=== PATIENT | female | born 1975 | race Caucasian/White ===

== ENCOUNTER 2016-11-24 00:25 | Emergency (ER) | payer OTHER ==
[2016-11-24 00:44] VITALS: BP 106/66; PULSE 63; TEMP 97.7; BMI 34.9
--- NOTE | 2016-11-24 00:46 | PDOC ---
History of Present Illness - General Chief Complaint: Pain Stated Complaint: STOMACH PAIN/VOMITING Time Seen by Provider: 11/24/16 00:45 Past History - Past Medical History Allergies/Adverse Reactions: Allergies Allergy/AdvReac Type Severity Reaction Status Date / Time No Known Allergies Allergy Verified 11/24/16 00:38 Home Medications: Ambulatory Orders Albuterol Sulfate Inhaler - [Ventolin HFA Inhaler -] 2 inh IH Q6H #1 inh Azithromycin [Zithromax -] 250 mg PO UTDICT #6 tab 09/06/16 Prednisone [Deltasone -] 40 mg PO DAILY #14 tablet 09/06/16 Asthma: Yes Suicide Attempt (Hx): No Other medical history: sleep apnea and vericos veins - Immunization History Td Vaccination: No TDAP Vaccination: No Immunization Up to Date: Yes - Psycho/Social/Smoking Cessation Hx Anxiety: No Suicidal Ideation: No Smoking Status: No Smoking History: Never smoked Years of Tobacco Use: 0 Have you smoked in the past 12 months: No Number of Cigarettes Smoked Daily: 0 Hx Alcohol Use: No Drug/Substance Use Hx: No Substance Use Type: None *Physical Exam - Vital Signs Last Vital Signs Temp Pulse Resp BP Pulse Ox 97.7 F 63 20 106/66 100 11/24/16 00:34 11/24/16 00:34 11/24/16 00:34 11/24/16 00:34 11/24/16 00:34
== END 2016-11-24 01:40 | disposition left against medical advice (07) ==
LOC: JER 00:25
DX: Z53.21 Procedure and treatment not carried out due to patient leaving prior to being seen by health care provider (principal)
CPT/HCPCS: 99281-25

== ENCOUNTER 2017-02-10 16:17 | Emergency (ER) | payer OTHER ==
[2017-02-10 16:33] VITALS: TEMP 98.1; BMI 33.8
--- NOTE | 2017-02-10 16:44 | PDOC ---
History of Present Illness - General Chief Complaint: Pain Stated Complaint: ABD PAIN/NAUSEA Time Seen by Provider: 02/10/17 16:44 Exam Limitations: No Limitations - History of Present Illness Initial Comments: 02/10/17 16:44 CHIEF COMPLAINT: Abdominal pain HISTORY OF PRESENT ILLNESS: This is an otherwise healthy 41 year old female who presents with right upper abdominal pain and vomiting since Friday. She reports that the pain is worse with eating. She has had several episodes of diarrhea daily since the onset of symptoms. She denies fevers/chills, constipation, dysuria, hematemesis, or any other symptoms. Patient does not have a PCP. REVIEW OF SYSTEMS: GENERAL/CONSTITUTIONAL: No fever or chills. No weakness. No weight change. HEAD, EYES, EARS, NOSE AND THROAT: No change in vision. No ear pain or discharge. No sore throat. CARDIOVASCULAR: No chest pain or palpitations. RESPIRATORY: No cough, wheezing, or shortness of breath. GASTROINTESTINAL: See HPI. GENITOURINARY: No dysuria, frequency, or change in urination. MUSCULOSKELETAL: No joint or muscle swelling or pain. No neck or back pain. SKIN: No rash or easy bruising. NEUROLOGIC: No headache, vertigo, loss of consciousness, or loss of sensation. PSYCHIATRIC: No depression or anxiety. ENDOCRINE: No increased thirst. No abnormal weight change. HEMATOLOGIC/LYMPHATIC: No anemia, easy bleeding, or history of blood clots. ALLERGIC/IMMUNOLOGIC: No hives or skin allergy. No latex allergy. PHYSICAL EXAM: GENERAL: The patient is awake, alert, and fully oriented, in no acute distress. HEAD: Normal with no signs of trauma. ENT: Pupils equal, round and reactive to light, extraocular movements intact, sclera anicteric, conjunctiva clear. Neck supple. LUNGS: Clear to auscultation bilaterally. Normal excursion. No respiratory distress or use of accessory muscles. CV: RRR, S1/S2, no MRG. Cap refill < 2 sec. ABDOMEN: Soft, non-distended, tender to palpation in RUQ. EXTREMITIES: Normal range of motion, no edema. NEUROLOGICAL: Normal speech, normal gait. CN II-XII grossly intact. PSYCH: Normal mood, normal affect. SKIN: Warm, dry, normal turgor, no rashes or lesions noted. Past History - Past Medical History Allergies/Adverse Reactions: Allergies Allergy/AdvReac Type Severity Reaction Status Date / Time No Known Allergies Allergy Verified 02/10/17 16:33 Home Medications: Ambulatory Orders NK [No Known Home Medication] 02/10/17 Asthma: Yes Suicide Attempt (Hx): No - Immunization History Td Vaccination: No TDAP Vaccination: No Immunization Up to Date: Yes - Psycho/Social/Smoking Cessation Hx Anxiety: No Suicidal Ideation: No Smoking Status: No Smoking History: Never smoked Years of Tobacco Use: 0 Have you smoked in the past 12 months: No Number of Cigarettes Smoked Daily: 0 Hx Alcohol Use: No Drug/Substance Use Hx: No Substance Use Type: None *Physical Exam - Vital Signs Last Vital Signs Temp Pulse Resp BP Pulse Ox 98.1 F 68 18 109/65 97 02/10/17 16:30 02/10/17 16:30 02/10/17 16:30 02/10/17 16:30 02/10/17 16:30 ED Treatment Course - LABORATORY CBC & Chemistry Diagram: 02/10/17 17:26 02/10/17 17:26 Medical Decision Making - Medical Decision Making 02/10/17 17:38 A/P: 41 year old female with RUQ pain and vomiting. 1. UA/ 2. Abdominal labs 3. Gallbladder u/s to r/o cheolecystitis 4. Hydromorphone 0.5 mg IVP for pain 5. Zofran 4mg IVP for nausea 6. IVF 7. Re-assess 02/10/17 18:26 U/s negative for gallstones. 02/10/17 18:41 Microscopic hematuria noted- patient is currently menstruating. 02/10/17 18:44 Patient re-evaluating and is feeling better. Tolerating PO. Will dc with Pepcid , Zofran, and bland diet instructions. *DC/Admit/Observation/Transfer Diagnosis at time of Disposition: RUQ abdominal pain - Discharge Dispostion Disposition: HOME Condition at time of disposition: Improved Admit: No - Referrals Referrals: Jenn Siddiqi MD [Primary Care Provider] - Call tomorrow - Patient Instructions Printed Discharge Instructions: DI for Viral Gastroenteritis -- Adult, Gastroenteritis Diet Additional Instructions: -You were seen today for upper abdominal pain and vomiting. -Your blood work and ultrasound were normal. -Take Pepcid and Zofran as prescribed. -Eat a bland diet (instructions enclosed). -Follow up with Dr. Anguiano. -Return here for worsening pain, inability to keep down fluids, or any other concerning symptoms. Print Language: THAI
[2017-02-10] MEDS ORDERED: ONDANSETRON 4 MG/2 ML VIAL IVPUSH ONE (16:55)
[2017-02-10] MEDS ORDERED: HYDROmorphone HCL CARPU-JECT 1 MG/1 ML DISP.SYRIN IVPUSH ONE (16:55)
[2017-02-10] MEDS ORDERED: SODIUM CHLORIDE 1,000 ML IV STA (16:55)
[2017-02-10] MEDS ORDERED: ONDANSETRON 4 MG/2 ML VIAL ONE (17:24)
[2017-02-10] MEDS ORDERED: HYDROmorphone HCL CARPU-JECT 1 MG/1 ML DISP.SYRIN ONE (17:24)
[2017-02-10 17:46] LABS: BASOPHIL 0.4 % (0-2.0); MCH 30.2 pg (25.7-33.7); MCHC 33.3 g/dl (32.0-36.0); MEAN CELL VOLUME 90.7 fl (80-96); MEAN PLT VOLUME 8.2 fl (7.5-11.1); NEUTROPHILS 46.4 % (42.8-82.8); PLATELET COUNT 297 K/MM3 (134-434); RDW 13.6 % (11.6-15.6); WHITE BLOOD COUNT 5.6 K/mm3 (4.0-10.0)
[2017-02-10 17:48] LABS: URINE APPEARANCE CLEAR; URINE BILIRUBIN NEGATIVE (NEGATIVE); URINE COLOR YELLOW; URINE GLUCOSE (UA) NEGATIVE (NEGATIVE); URINE KETONE NEGATIVE (NEGATIVE); URINE NITRITE NEGATIVE (NEGATIVE); URINE PROTEIN NEGATIVE (NEGATIVE); URINE UROBILINOGEN NEGATIVE E.U./dl (0.2-1.0)
[2017-02-10 18:01] LABS: URINE BLOOD 3+ (NEGATIVE); URINE LEUK ESTERASE 1+ (NEGATIVE)
[2017-02-10 18:12] LABS: URINE BACTERIA RARE /hpf (NONE SEEN); URINE HYALINE CAST 2 /lpf; URINE MUCUS RARE; URINE RBC 180 /hpf (0-3); URINE WBC 117 /hpf (3-5)
[2017-02-10 18:22] LABS: ALBUMIN 3.3 g/dl (3.4-5.0); ALK PHOS 107 U/L (45-117); ANION GAP 11 (8-16); BILIRUBIN,TOTAL 0.2 mg/dL (0.2-1.0); CALCIUM 8.6 mg/dL (8.5-10.1); CO2 26 mmol/L (21-32); CREATININE 0.6 mg/dL (0.55-1.02); GLUCOSE,RANDOM 93 mg/dL (74-106); SGPT/ALT 24 U/L (12-78); TOT PROT 6.8 g/dl (6.4-8.2)
[2017-02-10 18:26] LABS: SGOT/AST 18 U/L (15-37)
[2017-02-10] MEDS ORDERED: FAMOTIDINE 20 MG/50 ML IVPB 20 MG in PREMIX 50 IVPB ONE (18:26)
[2017-02-10] MEDS ORDERED: FAMOTIDINE 20 MG/50 ML IVPB 50 ML IVPB ONE (18:29)
[2017-02-10 19:00] VITALS: BP 112/64; PULSE 70
== END 2017-02-10 18:59 | disposition home or self-care (01) ==
LOC: JER 16:17
PROC: 3E0337Z Introduction of Electrolytic and Water Balance Substance into Peripheral Vein, Percutaneous Approach (ICD-10-PCS; principal; 2017-02-10)
PROC: 3E033GC Introduction of Other Therapeutic Substance into Peripheral Vein, Percutaneous Approach (ICD-10-PCS; 2017-02-10)
PROC: 3E033GC Introduction of Other Therapeutic Substance into Peripheral Vein, Percutaneous Approach (ICD-10-PCS; 2017-02-10)
PROC: 3E033NZ Introduction of Analgesics, Hypnotics, Sedatives into Peripheral Vein, Percutaneous Approach (ICD-10-PCS; 2017-02-10)
DX: K52.9 Noninfective gastroenteritis and colitis, unspecified (principal)
CPT/HCPCS: 36415; 76705-TC; 80053; 81003; 81015; 83690; 84703; 85025; 96361; 96365; 96375; 99283-25

== ENCOUNTER 2017-06-03 18:50 | Emergency (ER) | payer OTHER ==
[2017-06-03 18:58] VITALS: BP 147/73; PULSE 87; TEMP 98.3; BMI 33.8
[2017-06-03] MEDS ORDERED: ALBUTEROL SO4 2.5/IPRATROPIUM 0.5 INH SOL 3 ML VIAL.NEB. NEB ONE (19:43)
[2017-06-03] MEDS ORDERED: DEXAMETHASONE 4 MG TABLET (FP) PO ONE (19:43)
--- NOTE | 2017-06-03 19:46 | PDOC ---
History of Present Illness - General Chief Complaint: Sore Throat Stated Complaint: BREATHING PROBLEMS Time Seen by Provider: 06/03/17 19:21 - History of Present Illness Initial Comments: 06/03/17 19:44 CHIEF COMPLAINT: SOB HISTORY OF PRESENT ILLNESS: 41 yo F with history of asthma [facility] with shortness of breath since "just now." Patient states she used her albuterol inhaler with no relief. She reports an itchy throat and runny nose. She denies any fever, vomiting, diarrhea. No recent travel or sick contacts. PAST MEDICAL HISTORY: Denies past medical history FAMILY HISTORY: Denies SOCIAL HISTORY: Denies tobacco, alcohol, illicit drug use. SURGICAL HISTORY: Denies ALLERGIES: No known drug allergies REVIEW OF SYSTEMS General/Constitutional: Denies fever or chills. Denies weakness, weight change. HEENT: "Runny nose, throat itchy. "Denies change in vision. Denies ear pain or discharge. Denies sore throat. Cardiovascular: Denies chest pain or shortness of breath. Respiratory: Denies cough, wheezing, or hemoptysis. Gastrointestinal: Denies nausea, vomiting, diarrhea or constipation. Denies rectal bleeding. Genitourinary: Denies dysuria, frequency, or change in urination. Musculoskeletal: Denies joint or muscle swelling or pain. Denies neck or back pain. Skin and breasts: Denies rash or easy bruising. PHYSICAL EXAM General Appearance: Well-appearing, appropriately dressed. No apparent distress. HEENT: Rhinorrhea, post nasal drip appreciated. EOMI, PERRLA, normal ENT inspection. No conjunctival pallor. No photophobia, scleral icterus. Neck: Supple. Trachea midline. No tenderness, rigidity, carotid bruit, stridor , lymphadenopathy, or thyromegaly. Respiratory/Chest: SOB, diffuse wheezing b/l. No crackles, rales, rhonchi, stridor, dullness Cardiovascular: RRR. S1, S2. Musculoskeletal/Extremities: Normal inspection. FROM of all extremities, normal capillary refill. Pelvis Stable. No CVA tenderness. No tenderness to extremities, pedal edema, swelling, erythema or deformity. Integumentary: Appropriate color, dry, warm. No cyanosis, erythema, jaundice or rash Neurologic: sound installation worker II-XII intact. Fully oriented, alert. Appropriate mood/affect. Motor strength 5/5. No appreciable EOM palsy, facial droop or sensory deficit. 06/03/17 20:37 06/03/17 22:56 Past History - Past Medical History Allergies/Adverse Reactions: Allergies Allergy/AdvReac Type Severity Reaction Status Date / Time No Known Allergies Allergy Verified 06/03/17 18:58 Home Medications: Ambulatory Orders Famotidine [Pepcid] 20 mg PO DAILY #30 tablet 02/10/17 Ondansetron [Zofran Odt -] 4 mg SL TID PRN #21 od.tablet 02/10/17 Albuterol Sulfate Inhaler - [Ventolin HFA Inhaler -] 1 - 2 inh PO Q4H PRN #1 inhaler 06/03/17 Loratadine [Claritin] 10 mg PO DAILY #20 tablet 06/03/17 Asthma: Yes Suicide Attempt (Hx): No - Immunization History Td Vaccination: No TDAP Vaccination: No Immunization Up to Date: Yes - Psycho/Social/Smoking Cessation Hx Anxiety: No Suicidal Ideation: No Smoking Status: No Smoking History: Never smoked Years of Tobacco Use: 0 Have you smoked in the past 12 months: No Number of Cigarettes Smoked Daily: 0 Information on smoking cessation initiated: No Hx Alcohol Use: No Drug/Substance Use Hx: No Substance Use Type: None *Physical Exam - Vital Signs Last Vital Signs Temp Pulse Resp BP Pulse Ox 98.3 F 87 18 147/73 100 06/03/17 18:54 06/03/17 18:54 06/03/17 18:54 06/03/17 18:54 06/03/17 18:54 Medical Decision Making - Medical Decision Making 06/03/17 20:37 41 yo F with hx of asthma presents to [facility] with SOB. -duoneb -decadron 10 mg po Patient reassessed, at this time lungs CTAB, patient states she is feeling better. Will discharge to home with antihistamines and albuterol Advised patient to take medication as prescribed and follow up with PMD this week. Advised patient of signs and symptoms for return to ED. Patient verbalized understanding and agrees to plan. *DC/Admit/Observation/Transfer Diagnosis at time of Disposition: Asthma attack - Discharge Dispostion Disposition: HOME Condition at time of disposition: Stable Admit: No - Prescriptions Prescriptions: Loratadine [Claritin] 10 mg PO DAILY #20 tablet Albuterol Sulfate Inhaler - [Ventolin HFA Inhaler -] 1 - 2 inh PO Q4H PRN #1 inhaler PRN Reason: Wheezing - Referrals Referrals: Jenn Siddiqi MD [Primary Care Provider] - - Patient Instructions Printed Discharge Instructions: DI for Asthma -- Adult
[2017-06-03] MEDS ORDERED: DEXAMETHASONE SOD PHOSPHATE 10 MG/1 ML VIAL ONE (19:47)
== END 2017-06-03 20:48 | disposition home or self-care (01) ==
LOC: JERFT 18:50
PROC: 3E0F7GC Introduction of Other Therapeutic Substance into Respiratory Tract, Via Natural or Artificial Opening (ICD-10-PCS; principal; 2017-06-03)
DX: J45.901 Unspecified asthma with (acute) exacerbation (principal)
CPT/HCPCS: 94640; 99281-25

== ENCOUNTER 2017-06-29 11:42 | Emergency (ER) | payer OTHER ==
[2017-06-29 11:46] VITALS: BP 123/79; PULSE 69; TEMP 98.1; BMI 33.8
--- NOTE | 2017-06-29 11:55 | PDOC ---
History of Present Illness - General History Source: Patient Exam Limitations: No Limitations - History of Present Illness Initial Comments: 06/29/17 13:12 The patient is a 41 year old female with no past medical history who presents to the ED with complaints of worsening headache that began today. She states that the pain is accompanied with a burning pain in her neck as well. The patient adds that she had experienced a similar episode last year which was accompanied with insomnia for which she was diagnosed with anxiety. LMP began yesterday. The patient denies any fever, chills, nausea, vomiting, diarrhea, cough, SOB, CP, or urinary symptoms. <Florida Temple - Last Filed: 06/29/17 15:14> <John Quijano - Last Filed: 06/29/17 15:26> - General Chief Complaint: Headache Stated Complaint: HEADACHE Time Seen by Provider: 06/29/17 11:55 Past History <Florida Temple - Last Filed: 06/29/17 15:14> - Past Medical History Asthma: Yes Suicide Attempt (Hx): No - Immunization History Td Vaccination: No TDAP Vaccination: No Immunization Up to Date: Yes - Psycho/Social/Smoking Cessation Hx Anxiety: No Suicidal Ideation: No Smoking Status: No Smoking History: Never smoked Years of Tobacco Use: 0 Have you smoked in the past 12 months: No Number of Cigarettes Smoked Daily: 0 Information on smoking cessation initiated: No Hx Alcohol Use: No Drug/Substance Use Hx: No Substance Use Type: None <John Quijano - Last Filed: 06/29/17 15:26> - Past Medical History Allergies/Adverse Reactions: Allergies Allergy/AdvReac Type Severity Reaction Status Date / Time No Known Allergies Allergy Verified 06/29/17 11:42 Home Medications: Ambulatory Orders Albuterol Sulfate Inhaler - [Ventolin HFA Inhaler -] 1 - 2 inh PO Q4H PRN #1 inhaler 06/03/17 Lorazepam [Ativan] 1 mg PO BID #20 tablet MDD 2 06/29/17 Lorazepam [Ativan] 1 mg PO BID #20 tablet MDD 2 06/29/17 Review of Systems - Review of Systems Able to Perform ROS?: Yes Comments:: 06/29/17 13:12 GENERAL/CONSTITUTIONAL: No fever or chills. No weakness. HEAD, EYES, EARS, NOSE AND THROAT: No change in vision. No ear pain or discharge. No sore throat. CARDIOVASCULAR: No chest pain or shortness of breath. RESPIRATORY: No cough, wheezing, or hemoptysis. GASTROINTESTINAL: No nausea, vomiting, diarrhea or constipation. GENITOURINARY: No dysuria, frequency, or change in urination. MUSCULOSKELETAL: No joint or muscle swelling or pain. No neck or back pain. SKIN: No rash NEUROLOGIC: No headache, vertigo, loss of consciousness, or change in strength/ sensation. ENDOCRINE: No increased thirst. No abnormal weight change. HEMATOLOGIC/LYMPHATIC: No anemia, easy bleeding, or history of blood clots. ALLERGIC/IMMUNOLOGIC: No hives or skin allergy. All Other Systems: Reviewed and Negative <FinnyannaFlorida - Last Filed: 06/29/17 15:14> *Physical Exam - Vital Signs Last Vital Signs Temp Pulse Resp BP Pulse Ox 98.1 F 69 18 123/79 100 06/29/17 11:43 06/29/17 11:43 06/29/17 11:43 06/29/17 11:43 06/29/17 11:43 - Physical Exam Comments: 06/29/17 13:12 GENERAL: Awake, alert, and fully oriented, in no acute distress HEAD: No signs of trauma EYES: PERRLA, EOMI, sclera anicteric, conjunctiva clear ENT: Auricles normal inspection, hearing grossly normal, nares patent, oropharynx clear without exudates. Moist mucosa NECK: Normal ROM, supple, no lymphadenopathy, JVD, or masses LUNGS: Breath sounds equal, clear to auscultation bilaterally. No wheezes, and no crackles HEART: Regular rate and rhythm, normal S1 and S2, no murmurs, rubs or gallops ABDOMEN: Soft, nontender, normoactive bowel sounds. No guarding, no rebound. No masses EXTREMITIES: Normal range of motion, no edema. No clubbing or cyanosis. No cords, erythema, or tenderness NEUROLOGICAL: Cranial nerves II through XII grossly intact. Normal speech, normal gait SKIN: Warm, Dry, normal turgor, no rashes or lesions noted. <Finnyanna[place] - Last Filed: 06/29/17 15:14> - Vital Signs Last Vital Signs Temp Pulse Resp BP Pulse Ox 98.1 F 69 18 123/79 100 06/29/17 11:43 06/29/17 11:43 06/29/17 11:43 06/29/17 11:43 06/29/17 11:43 <John Quijano - Last Filed: 06/29/17 15:26> ED Treatment Course - LABORATORY CBC & Chemistry Diagram: 06/29/17 12:25 06/29/17 12:25 - ADDITIONAL ORDERS Additional order review: 06/29/17 12:25 RBC 4.00 MCV 90.7 MCHC 33.3 RDW 14.1 MPV 8.1 Neutrophils % 65.9 D Lymphocytes % 23.4 D Monocytes % 8.9 Eosinophils % 1.4 Basophils % 0.4 - RADIOLOGY Radiograph Interpretation: 06/29/17 14:[address] as reviewed by Dr. Villalba reports no acute intracranial pathology. 06/29/17 15:[address] as reviewed by Dr. Villalba reports possible slight disc bulge C5-C6 - Medications Given in the ED: ED Medications Discontinued Medications Generic Name Dose Route Start Last Admin Trade Name Prasanna PRN Reason Stop Dose Admin Ketorolac Tromethamine 30 mg 06/29/17 12:15 06/29/17 12:15 Toradol Injection - IVPUSH 06/29/17 12:16 30 mg ONCE ONE Administration Lorazepam 4 mg 06/29/17 12:15 06/29/17 12:47 Ativan Injection - IVPUSH 06/29/17 12:16 Not Given ONCE ONE Lorazepam 1 mg 06/29/17 12:48 06/29/17 12:50 Ativan Injection - IVPUSH 06/29/17 12:49 1 mg ONCE ONE Administration Ondansetron HCl 4 mg 06/29/17 12:15 06/29/17 12:15 Zofran Injection IVPUSH 06/29/17 12:16 4 mg ONCE ONE Administration <Florida Temple - Last Filed: 06/29/17 15:14> - LABORATORY CBC & Chemistry Diagram: 06/29/17 12:25 06/29/17 12:25 <John Quijano - Last Filed: 06/29/17 15:26> Medical Decision Making - Medical Decision Making 06/29/17 15:[address] neck [address] all benign Will DC home Follow up with PMD Short course of ativan for anxiety <John Quijano - Last Filed: 06/29/17 15:26> *DC/Admit/Observation/Transfer - Attestations Scribe Attestion: 06/29/17 13:12 Documentation prepared by Florida Temple, acting as medical editor for John Quijano DO. <Floirda Temple - Last Filed: 06/29/17 15:14> - Discharge Dispostion Admit: No - Attestations Physician Attestion: 06/29/17 11:55 I, Dr. John Quijano, attest that this document has been prepared under my direction and personally reviewed by me in its entirety. I further attest, that it accurately reflects all work, treatment, procedures and medical decision -making performed by me. <John Quijano - Last Filed: 06/29/17 15:26> Diagnosis at time of Disposition: Muscle contraction headache syndrome, Anxiety - Prescriptions Prescriptions: Lorazepam [Ativan] 1 mg PO BID #20 tablet MDD 2 Lorazepam [Ativan] 1 mg PO BID #20 tablet MDD 2 - Patient Instructions Printed Discharge Instructions: DI for Anxiety -- Adult, DI for Hormonal and Tension Headaches Additional Instructions: Dianne- Use the ativan sparingly. Take motrin for your headaches. See your doctor later this week. Best- Dr. John Quijano
[2017-06-29] MEDS ORDERED: KETOROLAC TROMETHAMINE 30 MG/1 ML VIAL IVPUSH ONE (12:15)
[2017-06-29] MEDS ORDERED: SODIUM CHLORIDE 1,000 ML IV STA (12:15)
[2017-06-29] MEDS ORDERED: ONDANSETRON 4 MG/2 ML VIAL IVPUSH ONE (12:15)
[2017-06-29] MEDS ORDERED: ONDANSETRON 4 MG/2 ML VIAL ONE (12:19)
[2017-06-29] MEDS ORDERED: KETOROLAC TROMETHAMINE 30 MG/1 ML VIAL ONE (12:19)
[2017-06-29 12:46] LABS: BASOPHIL 0.4 % (0-2.0); EOSINOPHIL 1.4 % (0-4.5); MCH 30.2 pg (25.7-33.7); MCHC 33.3 g/dl (32.0-36.0); MEAN CELL VOLUME 90.7 fl (80-96); MEAN PLT VOLUME 8.1 fl (7.5-11.1); NEUTROPHILS 65.9 % (42.8-82.8); PLATELET COUNT 405 K/MM3 (134-434); RDW 14.1 % (11.6-15.6); WHITE BLOOD COUNT 7.6 K/mm3 (4.0-10.0)
[2017-06-29 13:13] LABS: ALBUMIN 3.8 g/dl (3.4-5.0); ALK PHOS 103 U/L (45-117); ANION GAP 6 (8-16); BILIRUBIN,TOTAL 0.5 mg/dL (0.2-1.0); CALCIUM 8.9 mg/dL (8.5-10.1); CO2 27 mmol/L (21-32); CREATININE 0.6 mg/dL (0.55-1.02); GLUCOSE,RANDOM 101 mg/dL (74-106); SGOT/AST 17 U/L (15-37); SGPT/ALT 24 U/L (12-78); TOT PROT 7.3 g/dl (6.4-8.2)
[2017-06-29 13:18] LABS: URINE APPEARANCE CLEAR; URINE BILIRUBIN NEGATIVE (NEGATIVE); URINE BLOOD 1+ (NEGATIVE); URINE COLOR YELLOW; URINE GLUCOSE (UA) NEGATIVE (NEGATIVE); URINE KETONE TRACE (NEGATIVE); URINE LEUK ESTERASE NEGATIVE (NEGATIVE); URINE NITRITE NEGATIVE (NEGATIVE); URINE PROTEIN NEGATIVE (NEGATIVE); URINE UROBILINOGEN NEGATIVE mg/dL (0.2-1.0)
[2017-06-29 13:23] LABS: URINE MUCUS RARE; URINE RBC 1 /hpf (0-3); URINE WBC 1 /hpf (3-5)
== END 2017-06-29 15:55 | disposition home or self-care (01) ==
LOC: JER 11:42
PROC: 3E033NZ Introduction of Analgesics, Hypnotics, Sedatives into Peripheral Vein, Percutaneous Approach (ICD-10-PCS; principal; 2017-06-29)
PROC: 3E0333Z Introduction of Anti-inflammatory into Peripheral Vein, Percutaneous Approach (ICD-10-PCS; 2017-06-29)
DX: G44.209 Tension-type headache, unspecified, not intractable (principal); F41.9 Anxiety disorder, unspecified
CPT/HCPCS: 36415; 70450-TC; 72125-TC; 80053; 81003; 81015; 84703; 85025; 99283-25

== ENCOUNTER 2018-11-21 17:32 | Emergency (ER) | payer OTHER ==
[2018-11-21 18:03] VITALS: BP 111/71; PULSE 68; TEMP 96.5; BMI 34.9
[2018-11-21] MEDS ORDERED: KETOROLAC TROMETHAMINE 30 MG/1 ML VIAL IM ONE (19:47)
[2018-11-21] MEDS ORDERED: ONDANSETRON *ODT* 4 MG TABLET SL ONE (19:47)
--- NOTE | 2018-11-21 19:47 | PDOC ---
History of Present Illness - General Chief Complaint: Pain Stated Complaint: NUMBNESS ON LT ARM Time Seen by Provider: 11/21/18 18:07 History Source: Patient Exam Limitations: No Limitations Past History - Past Medical History Allergies/Adverse Reactions: Allergies Allergy/AdvReac Type Severity Reaction Status Date / Time morphine Allergy Verified 03/23/18 09:50 MORPHINE Allergy Uncoded 03/23/18 09:50 Home Medications: Ambulatory Orders Atorvastatin Ca 40 mg PO DAILY 11/21/18 Gabapentin 100 mg PO DAILY 11/21/18 Naproxen 500 mg PO BID #14 tablet 11/21/18 Anemia: Yes (sleep apnea) Asthma: Yes COPD: No - Immunization History Td Vaccination: No TDAP Vaccination: No Immunization Up to Date: Yes - Suicide/Smoking/Psychosocial Hx Smoking Status: No Smoking History: Never smoked Years of Tobacco Use: 0 Have you smoked in the past 12 months: No Number of Cigarettes Smoked Daily: 0 Hx Alcohol Use: No Drug/Substance Use Hx: No Substance Use Type: None *Physical Exam - Vital Signs Last Vital Signs Temp Pulse Resp BP Pulse Ox 96.5 F L 68 18 111/71 97 11/21/18 18:01 11/21/18 18:01 11/21/18 18:01 11/21/18 18:01 11/21/18 18:01 Moderate Sedation - Procedure Monitoring Vital Signs: Procedure Monitoring Vital Signs Temperature 96.5 F L 11/21/18 18:01 Pulse Rate 68 11/21/18 18:01 Respiratory Rate 18 11/21/18 18:01 Blood Pressure 111/71 11/21/18 18:01 O2 Sat by Pulse Oximetry (%) 97 11/21/18 18:01 *DC/Admit/Observation/Transfer Diagnosis at time of Disposition: Atypical chest pain - Discharge Dispostion Disposition: HOME Condition at time of disposition: Stable Decision to Admit order: No - Referrals Referrals: Steve Will MD [Primary Care Provider] - - Patient Instructions Printed Discharge Instructions: DI for Atypical Chest Pain Additional Instructions: Your EKG was normal today Please take naproxen 500mg twice a day for your neck pain Please follow up with your primary care provider Return to the ED for worsening chest pain, difficulty breathing, shortness of breath, or if you have any changes in your symptoms Tu EKG era normal hoy Por favor tome naproxeno 500 mg dos veces al da para el dolor de anastacio. Por favor nury un seguimiento con fonseca proveedor de atencin primaria Regrese a la jaime de emergencias para empeorar el dolor en el pecho, dificultad para respirar, dificultad para respirar o si tiene algn cambio en jan sntomas - Post Discharge Activity Forms/Work/School Notes: Back to Work
[2018-11-21] MEDS ORDERED: MAG HYDROX/AL HYDROX/SIMETH 30 ML UNIT-DOSE CUP PO ONE (19:48)
[2018-11-21] MEDS ORDERED: NAPROXEN 500 MG TABLET (FP) PO ONE (19:48)
[2018-11-21] MEDS ORDERED: NAPROXEN 500 MG TABLET (FP) ONE (20:56)
[2018-11-21] MEDS ORDERED: MAG HYDROX/AL HYDROX/SIMETH 30 ML UNIT-DOSE CUP ONE (20:57)
[2018-11-21] MEDS ORDERED: ONDANSETRON *ODT* 4 MG TABLET ONE (20:57)
--- NOTE | 2018-11-22 08:32 | EKG ---
Test Reason : Blood Pressure : / mmHG Vent. Rate : 061 BPM Atrial Rate : 061 BPM P-R Int : 136 ms QRS Dur : 084 ms QT Int : 446 ms P-R-T Axes : 033 009 014 degrees QTc Int : 448 ms NORMAL SINUS RHYTHM CANNOT RULE OUT ANTERIOR INFARCT , AGE UNDETERMINED ABNORMAL ECG WHEN COMPARED WITH ECG OF 15-NOV-2013 10:12, NONSPECIFIC T WAVE ABNORMALITY NOW EVIDENT IN ANTERIOR LEADS Confirmed by AUDREY BERGERON, SATYA ([id number]) on 11/22/2018 8:32:23 AM Referred By: Confirmed By:SATYA VENTURA MD
== END 2018-11-21 22:23 | disposition home or self-care (01) ==
LOC: JERFT 17:32
DX: R07.9 Chest pain, unspecified (principal); G47.30 Sleep apnea, unspecified; Z87.09 Personal history of other diseases of the respiratory system
CPT/HCPCS: 93005; 93010; 99281-25; Q0162

== ENCOUNTER 2018-12-20 09:10 | Emergency (ER) | payer OTHER ==
[2018-12-20 09:23] VITALS: BP 111/75; PULSE 106; TEMP 99.8; BMI 33.8
[2018-12-20] MEDS ORDERED: predniSONE 20 MG TABLET (UD) PO ONE (09:36)
[2018-12-20] MEDS ORDERED: KETOROLAC TROMETHAMINE 60 MG/2 ML VIAL IM ONE (09:37)
[2018-12-20] MEDS ORDERED: KETOROLAC TROMETHAMINE 60 MG/2 ML VIAL ONE (09:41)
[2018-12-20] MEDS ORDERED: predniSONE 20 MG TABLET (UD) ONE (09:41)
--- NOTE | 2018-12-20 09:53 | PDOC ---
History of Present Illness - General Chief Complaint: Respiratory Stated Complaint: CHEST PAIN Time Seen by Provider: 12/20/18 09:33 History Source: Patient Exam Limitations: No Limitations - History of Present Illness Initial Comments: 12/20/18 09:41 Onset of cough, fevers, chills, sore throat and ear pain and generalized body aches 3 days. . Has severe pleuritic chest pain. Has been using her albuterol inhaler with minimal resolved. 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 12/20/18 09:41 Timing/Duration: reports: getting worse Severity: reports: moderate Associated Symptoms: reports: chest pain/soreness, cough, dizziness, fever/ chills, muscle aches, nasal congestion, nasal drainage, sore throat Past History - Travel Traveled outside of the country in the last 30 days: No Close contact w/someone who was outside of country & ill: No - Past Medical History Allergies/Adverse Reactions: Allergies Allergy/AdvReac Type Severity Reaction Status Date / Time morphine Allergy Verified 12/20/18 09:18 MORPHINE Allergy Uncoded 12/20/18 09:18 Home Medications: Ambulatory Orders Atorvastatin Ca 40 mg PO DAILY 11/21/18 Omeprazole 20 mg PO DAILY 12/20/18 Oseltamivir Phosphate [Tamiflu -] 75 mg PO BID #10 capsule 12/20/18 predniSONE [Deltasone -] 20 mg PO BID #8 tablet 12/20/18 Anemia: Yes (sleep apnea) Asthma: Yes COPD: No - Immunization History Td Vaccination: No TDAP Vaccination: No Immunization Up to Date: Yes - Suicide/Smoking/Psychosocial Hx Smoking Status: No Smoking History: Never smoked Years of Tobacco Use: 0 Have you smoked in the past 12 months: No Number of Cigarettes Smoked Daily: 0 Hx Alcohol Use: No Drug/Substance Use Hx: No Substance Use Type: None Review of Systems - Review of Systems Able to Perform ROS?: Yes Is the patient limited Macanese proficient: Yes Constitutional: Yes: Symptoms Reported, See HPI, Chills, Fever, Loss of Appetite , Malaise HEENTM: Yes: Symptoms Reported, See HPI, Nose Congestion, Throat Pain Respiratory: Yes: Symptoms reported, See HPI, Cough, Wheezing ABD/GI: Yes: Symptoms Reported, See HPI, Nausea. No: Vomiting : No: Symptoms Reported Musculoskeletal: Yes: Symptoms Reported, See HPI, Joint Pain, Joint Swelling, Muscle Pain Integumentary: No: Symptoms Reported Neurological: Yes: Symptoms reported, See HPI, Headache All Other Systems: Reviewed and Negative (with pleuritic chest pain) *Physical Exam - Vital Signs Last Vital Signs Temp Pulse Resp BP Pulse Ox 99.8 F H 106 H 18 111/75 98 12/20/18 09:21 12/20/18 09:21 12/20/18 09:21 12/20/18 09:21 12/20/18 09:21 - Physical Exam Comments: 12/20/18 09:59 GENERAL: [The child is awake, alert, and appropriately interactive.] EYES: [The pupils are equal, round, and reactive to light, with clear, conjunctiva.but glassy] NOSE: [The nose with clear drainage EARS: [The ear canals and tympanic membranes are congested but landmarks easily visualed ] THROAT: [The oropharynx is clear with erythema, no exudates. The mucous membranes are moist.] NECK: [The neck is supple with mildly tender adenopathy, no menigemous] CHEST: [The lungs are coarse but clear without crackles, or wheezes. Strong moist cough, causing pleuritic chest pain] HEART: [Heart is regular rhythm, with normal S1 and S2, no murmurs.] ABDOMEN: [The abdomen is soft and nontender with normal bowel sounds. There is no organomegaly and no mass. There is no guarding or rebound.] EXTREMITIES: [Extremities are normal.] NEURO: [Behavior is normal for age.cranky but easily,m Tone is normal.] SKIN: [Skin is unremarkable without rash or swelling. There is no bruising, and there are no other signs of injury.] Moderate Sedation - Procedure Monitoring Vital Signs: Procedure Monitoring Vital Signs Temperature 99.8 F H 12/20/18 09:21 Pulse Rate 106 H 12/20/18 09:21 Respiratory Rate 18 12/20/18 09:21 Blood Pressure 111/75 12/20/18 09:21 O2 Sat by Pulse Oximetry (%) 98 12/20/18 09:21 Progress Note - Progress Note Progress Note: Upper respiratory infection, no resolution with azithromycin, will treat for influenza is still within the window. As well as continued albuterol nebulizers with short course of prednisone *DC/Admit/Observation/Transfer Diagnosis at time of Disposition: Influenzal acute upper respiratory infection - Discharge Dispostion Disposition: HOME Condition at time of disposition: Stable Decision to Admit order: No - Prescriptions Prescriptions: Oseltamivir Phosphate [Tamiflu -] 75 mg PO BID #10 capsule predniSONE [Deltasone -] 20 mg PO BID #8 tablet - Referrals Referrals: Steve Will MD [Primary Care Provider] - - Patient Instructions Printed Discharge Instructions: DI for Viral Upper Respiratory Infection -- Adult Additional Instructions: Rest, drink lots of fluids: Teas, water, soups, Pedialyte Saltwater gargles Steamy showers/seem to face break up mucus Old-fashioned treatments help! Avoid contact with others until fevers and cough resolved as this is very contagious Lots of handwashing and good hygiene Continue akix-eol-ezegpoe medications for symptomatic relief Tylenol or Motrin for fever and pain Take all of Tamiflu as directed: 1 tab every 12 hours for 5 days Continue albuterol nebulizers every 4-6 hours for the next 2-3 days Prednisone 40 mg daily for the next 4 days Followup with private physician in one to 2 days as needed or if worsening Return to emergency department for worsened symptoms, fevers, dehydration Influenza takes between 5 and 7 days for resolution To not participate in any activity, work, or school until fevers and cough are gone for at least one day - Post Discharge Activity Forms/Work/School Notes: Back to Work
--- NOTE | 2018-12-20 13:27 | EKG ---
Test Reason : Blood Pressure : / mmHG Vent. Rate : 097 BPM Atrial Rate : 097 BPM P-R Int : 132 ms QRS Dur : 084 ms QT Int : 352 ms P-R-T Axes : 065 -01 007 degrees QTc Int : 447 ms NORMAL SINUS RHYTHM POSSIBLE LEFT ATRIAL ENLARGEMENT BORDERLINE ECG Confirmed by Rahul Pearce MD ([id number]) on 12/20/2018 1:27:30 PM Referred By: Confirmed By:Rahul Pearce MD
== END 2018-12-20 10:05 | disposition home or self-care (01) ==
LOC: JERFT 09:10
PROC: 3E0233Z Introduction of Anti-inflammatory into Muscle, Percutaneous Approach (ICD-10-PCS; principal; 2018-12-20)
DX: J11.1 Influenza due to unidentified influenza virus with other respiratory manifestations (principal)
CPT/HCPCS: 93005; 93010; 96372; 99281-25

== ENCOUNTER 2019-02-14 17:43 | Emergency (ER) | payer OTHER ==
[2019-02-14 17:47] VITALS: BP 110/70; PULSE 106; TEMP 98.4; BMI 42.0
--- NOTE | 2019-02-14 18:17 | PDOC ---
History of Present Illness - General Chief Complaint: Sore Throat Stated Complaint: COLD SYMPTOMS/PAIN Time Seen by Provider: 02/14/19 17:58 History Source: Patient Exam Limitations: No Limitations Past History - Travel Traveled outside of the country in the last 30 days: No Close contact w/someone who was outside of country & ill: No - Past Medical History Allergies/Adverse Reactions: Allergies Allergy/AdvReac Type Severity Reaction Status Date / Time morphine Allergy Verified 02/14/19 17:47 MORPHINE Allergy Uncoded 02/14/19 17:47 Home Medications: Ambulatory Orders Omeprazole 20 mg PO DAILY 12/20/18 Gabapentin 100 mg PO TID 02/14/19 Anemia: Yes (sleep apnea) Asthma: Yes COPD: No - Immunization History Td Vaccination: No TDAP Vaccination: No Immunization Up to Date: Yes - Suicide/Smoking/Psychosocial Hx Smoking Status: No Smoking History: Never smoked Years of Tobacco Use: 0 Have you smoked in the past 12 months: No Number of Cigarettes Smoked Daily: 0 Hx Alcohol Use: No Drug/Substance Use Hx: No Substance Use Type: None Review of Systems - Review of Systems Able to Perform ROS?: Yes Comments:: 02/14/19 19:34 CONSTITUTIONAL: Present: Fever, chills, body aches Absent: diaphoresis, generalized weakness, malaise, loss of appetite HEENT: Present: rhinorrhea, nasal congestion, throat pain. Absent: difficulty swallowing, mouth swelling, ear pain, eye pain, visual Changes CARDIOVASCULAR: Absent: chest pain, loss of consciousness, palpitations, irregular heart rate, peripheral edema RESPIRATORY: Absent: cough, shortness of breath, dyspnea with exertion, orthopnea, wheezing , stridor, hemoptysis GASTROINTESTINAL: Absent: abdominal pain, abdominal distension, nausea, vomiting, diarrhea, constipation, melena, hematochezia SKIN: Absent: rash, itching, pallor NEUROLOGIC: Absent: headache, focal weakness or paresthesias, dizziness, unsteady gait, seizure, mental status changes, bladder or bowel incontinence Is the patient limited Slovenian proficient: No *Physical Exam - Vital Signs Last Vital Signs Temp Pulse Resp BP Pulse Ox 98.4 F 106 H 20 110/70 99 02/14/19 17:45 02/14/19 17:45 02/14/19 17:45 02/14/19 17:45 02/14/19 17:45 - Physical Exam Comments: 02/14/19 19:35 GENERAL: Well developed, well nourished. Awake and alert. No acute distress. HEENT: Normocephalic, atraumatic. PERRLA, EOMI. No conjunctival pallor. Sclera are non- icteric. Moist mucous membranes. Oropharynx is clear. NECK: Supple. Full ROM. No JVD. Carotid pulses 2+ and symmetric, without bruits. No thyromegaly. No lymphadenopathy. CARDIOVASCULAR: Regular rate and rhythm. No murmurs, rubs, or gallops. Distal pulses are 2+ and symmetric. PULMONARY: No evidence of respiratory distress. Lungs clear to auscultation bilaterally. No wheezing, rales or rhonchi. SKIN: Warm and dry. Normal capillary refill. No rashes. No jaundice. NEUROLOGICAL: Alert, awake, appropriate. Cranial nerves 2-12 intact. No deficits to light touch and temperature in face, upper extremities and lower extremities. No motor deficits in the in face, upper extremities and lower extremities. Normoreflexic in the upper and lower extremities. Normal speech. Toes are down- going bilaterally. Gait is normal without ataxia. Medical Decision Making - Medical Decision Making 02/14/19 19:36 The patient is a 43-year-old female no past medical history who presents to the ER for 3 days of sore throat, fever, body aches and chills. She has tried taking Advil at home with little relief of her symptoms. Denies nausea, vomiting , cough, chest pain cultures of breath and difficulty breathing. A/P: Strep versus flu Cultures obtained for both strep and flu Patient is negative for both strep and flu. Most likely an upper respiratory illness. Tylenol and steroids given the ER for symptomatic relief. Discharge home with symptomatic support I discussed the physical exam findings, ancillary test results and final diagnoses with the patient. I answered all of the patient's questions. The patient was satisfied with the care received and felt comfortable with the discharge plan and treatment plan. The Patient agrees to follow up with the primary care physician/specialist within 24-72 hours. Return precautions were given. *DC/Admit/Observation/Transfer Diagnosis at time of Disposition: Upper respiratory infection Qualifiers: URI type: unspecified viral URI Qualified Code(s): J06.9 - Acute upper respiratory infection, unspecified - Discharge Dispostion Disposition: HOME Condition at time of disposition: Stable Decision to Admit order: No - Referrals Referrals: Steve Will MD [Primary Care Provider] - - Patient Instructions Printed Discharge Instructions: DI for Viral Upper Respiratory Infection -- Adult Additional Instructions: You have an upper respiratory infection, or the common cold. Your strep and flu testing was negative today. Please take Motrin 800 mg every 8 hours as needed for pain not to exceed 3000 mg a day. Drink plenty of fluids. Cough drops and warm tea may help your symptoms as well. Please follow up with her primary care doctor this week. Return to the emergency department if you have difficulty breathing, shortness of breath, worsening pain, nausea, vomiting or if you have any changes in your symptoms. Usted tiene liz infeccin respiratoria superior, o el resfriado comn. Fonseca prueba de estreptococo y gripe fue negativa hoy [place] Motrin 800 mg cada 8 horas segn sea necesario para que el dolor no exceda los 3000 mg al da. Beber mucho lquido. Las gotas para la tos y el t caliente tambin pueden ayudar con jan sntomas. Por favor nury un seguimiento con fonseca mdico de atencin primaria esta semana. Regrese a la jaime de emergencias si tiene dificultad para respirar, dificultad para respirar, empeoramiento del dolor, nuseas, vmitos o si tiene algn cambio en jan sntomas. - Post Discharge Activity Forms/Work/School Notes: Back to Work
[2019-02-14] MEDS ORDERED: ACETAMINOPHEN 325 MG TABLET (FP) PO ONE (18:18)
[2019-02-14] MEDS ORDERED: DEXAMETHASONE LIQUID 0.5 MG/5 ML 240 ML BULK BOTTLE PO ONE (18:18)
[2019-02-14] MEDS ORDERED: ACETAMINOPHEN 325 MG TABLET (FP) ONE (18:23)
[2019-02-14] MEDS ORDERED: DEXAMETHASONE SOD PHOSPHATE 10 MG/1 ML VIAL ONE (18:23)
== END 2019-02-14 19:54 | disposition home or self-care (01) ==
LOC: JERFT 17:43
DX: J06.9 Acute upper respiratory infection, unspecified (principal); B97.89 Other viral agents as the cause of diseases classified elsewhere
CPT/HCPCS: 87070; 87804; 87880; 99281-25

== ENCOUNTER 2019-02-19 01:41 | Emergency (ER) | payer OTHER ==
[2019-02-19 02:09] VITALS: BP 121/73; PULSE 91; TEMP 98.4; BMI 35.1
[2019-02-19] MEDS ORDERED: SODIUM CHLORIDE FOR INHALATION 3 ML VIAL.NEB IH ONE (02:13)
--- NOTE | 2019-02-19 02:29 | PDOC ---
History of Present Illness - General Chief Complaint: Eye Problem Stated Complaint: SORE THROAT,EYE PROBLEM Time Seen by Provider: 02/19/19 01:56 History Source: Patient Exam Limitations: No Limitations Past History - Past Medical History Allergies/Adverse Reactions: Allergies Allergy/AdvReac Type Severity Reaction Status Date / Time morphine Allergy Verified 02/19/19 02:09 Home Medications: Ambulatory Orders Omeprazole 20 mg PO DAILY 12/20/18 Gabapentin 100 mg PO TID 02/14/19 Polymyxin B Sulfate/Tmp [Polytrim Opthalmic Solution -] 1 drop OP Q3H #1 bottle 02/19/19 Anemia: Yes (sleep apnea) Asthma: Yes COPD: No - Immunization History Td Vaccination: No TDAP Vaccination: No Immunization Up to Date: Yes - Suicide/Smoking/Psychosocial Hx Smoking Status: No Smoking History: Unknown if ever smoked Years of Tobacco Use: 0 Have you smoked in the past 12 months: No Number of Cigarettes Smoked Daily: 0 Hx Alcohol Use: No Drug/Substance Use Hx: No Substance Use Type: None *Physical Exam - Vital Signs Last Vital Signs Temp Pulse Resp BP Pulse Ox 98.4 F 91 H 16 121/73 97 02/19/19 02:00 02/19/19 02:00 02/19/19 02:00 02/19/19 02:00 02/19/19 02:00 - Physical Exam General Appearance: No: Apparent Distress HEENT: positive: Muffled/Hoarse voice (hoarsness (patient losing voice)), Pharyngeal Erythema (minimal), Nasal Congestion, Other (+B/L eyes injected, greenish discharge noted from R eye). negative: Tonsillar Exudate, Tonsillar Erythema, Rhinorrhea, Sinus Tenderness Respiratory/Chest: positive: Lungs Clear, Normal Breath Sounds. negative: Respiratory Distress Cardiovascular: positive: Regular Rhythm, Regular Rate, S1, S2. negative: Murmur Gastrointestinal/Abdominal: positive: Normal Bowel Sounds, Soft. negative: Tender, Distended, Guarding, Rebound Extremity: positive: Normal Inspection. negative: Pedal Edema, Calf Tenderness Neurologic: positive: Fully Oriented, Alert, Normal Mood/Affect Medical Decision Making - Medical Decision Making 43 y/o F hx of asthma (never intubated, never hospitalized), sleep apnea presents with sore throat, cough, nasal congestion, post-tussive emesis since 6 days ago. This morning, she noted B/L eye redness with greenish d/c from eyes; states throat feels dry and excessive coughing makes her feel short of breath. Has CP only with coughing. Was seen on 02/14 for similar symptoms; at that time, she was tested negative for flu and rapid strep; throat culture was also negative. Denies ear pain, abd pain, n/v. Likely laryngitis along with bacterial conjunctivitis Plan: Saline neb, eye drops 02/19/19 02:29 *DC/Admit/Observation/Transfer Diagnosis at time of Disposition: Laryngitis Conjunctivitis Qualifiers: Conjunctivitis type: acute Acute conjunctivitis type: bacterial Laterality: bilateral Qualified Code(s): H10.33 - Unspecified acute conjunctivitis, bilateral - Discharge Dispostion Disposition: HOME Condition at time of disposition: Stable Decision to Admit order: No - Prescriptions Prescriptions: Polymyxin B Sulfate/Tmp [Polytrim Opthalmic Solution -] 1 drop OP Q3H #1 bottle - Referrals Referrals: Steve Will MD [Primary Care Provider] - 2 Days - Patient Instructions Printed Discharge Instructions: DI for Conjunctivitis, DI for Laryngitis Additional Instructions: Thank you for choosing [facility]. It was a pleasure taking care of you. Recommend rest Use humidifier at night to help breath better Use Tylenol or Motrin as needed for pain Tea with honey and lozenges may also help You were also noted to have eye infection - please use the prescribed eye drops for 1 week. This infection is contagious and can spread by touch. Be sure to wash hands Return to the Emergency Department if your symptoms worsen or persist or have other concerning symptoms. - Post Discharge Activity Forms/Work/School Notes: Back to Work
--- NOTE | 2019-02-19 02:55 | PDOC ---
*Physical Exam - Vital Signs Last Vital Signs Temp Pulse Resp BP Pulse Ox 98.4 F 91 H 16 121/73 97 02/19/19 02:00 02/19/19 02:00 02/19/19 02:00 02/19/19 02:00 02/19/19 02:00 ED Treatment Course - Medications Given in the ED: ED Medications Discontinued Medications Generic Name Dose Route Start Last Admin Trade Name Freq PRN Reason Stop Dose Admin Sodium Chloride 3 ml 02/19/19 02:13 02/19/19 02:25 Normal Saline For Inhalation - IH 02/19/19 02:14 3 ml ONCE ONE Administration Medical Decision Making - Medical Decision Making 02/19/19 02:55 Case discussed with OTIS Tang Agree with assessment and plan *DC/Admit/Observation/Transfer Diagnosis at time of Disposition: Laryngitis Conjunctivitis Qualifiers: Conjunctivitis type: acute Acute conjunctivitis type: bacterial Laterality: bilateral Qualified Code(s): H10.33 - Unspecified acute conjunctivitis, bilateral - Discharge Dispostion Disposition: HOME Condition at time of disposition: Stable - Prescriptions Prescriptions: Polymyxin B Sulfate/Tmp [Polytrim Opthalmic Solution -] 1 drop OP Q3H #1 bottle - Referrals Referrals: Steve Will MD [Primary Care Provider] - 2 Days - Patient Instructions Printed Discharge Instructions: DI for Conjunctivitis, DI for Laryngitis Additional Instructions: Thank you for choosing [facility]. It was a pleasure taking care of you. Recommend rest Use humidifier at night to help breath better Use Tylenol or Motrin as needed for pain Tea with honey and lozenges may also help You were also noted to have eye infection - please use the prescribed eye drops for 1 week. This infection is contagious and can spread by touch. Be sure to wash hands Return to the Emergency Department if your symptoms worsen or persist or have other concerning symptoms. - Post Discharge Activity Forms/Work/School Notes: Back to Work
== END 2019-02-19 03:00 | disposition home or self-care (01) ==
LOC: JER 01:41
PROC: 3E0F7GC Introduction of Other Therapeutic Substance into Respiratory Tract, Via Natural or Artificial Opening (ICD-10-PCS; principal; 2019-02-19)
DX: J04.0 Acute laryngitis (principal); H10.33 Unspecified acute conjunctivitis, bilateral
CPT/HCPCS: 94640; 99281-25